=== PATIENT | female | born 1945 | race Caucasian/White ===

== ENCOUNTER → 2022-11-03 | Outpatient (REF) | payer OTHER | LOC: M SMT 17:08 | PROVIDERS: ATTEND Urology | DX: N39.0 Urinary tract infection, site not specified (principal) ==

== ENCOUNTER 2022-11-08 12:58 | Inpatient (IN) | payer MEDICARE, OTHER ==
[~2022-11-08] VITALS: Ht 165.1 cm; Wt 49.0 kg
[2022-11-08] MEDS ORDERED: BACTDSTA PO (14:16)
[2022-11-08] MEDS ORDERED: CHOL4PW PO (14:16)
[2022-11-08] MEDS ORDERED: NEUR100C PO (14:16)
[2022-11-08] MEDS ORDERED: LEXA1TAB2 PO (14:16)
[2022-11-08] MEDS ORDERED: ATIV1TAB10 PO (14:16)
[2022-11-08] MEDS ORDERED: ERGO80006 PO (14:16)
[2022-11-08] MEDS ORDERED: ESOM0.1C PO (14:16)
[2022-11-08] MEDS ORDERED: ONDANSETRON 4MG 2ML VIAL IV ONE (15:00)
[2022-11-08 15:14] LABS: BASO % 0.3 % (0.0-1.0); EOS # 0.1 10^3/uL (0.0-0.5); EOS % 0.7 % (0.0-3.0); HEMATOCRIT 28.3 % (36.0-47.0); HEMOGLOBIN 8.6 g/dl (12.0-15.5); LYMPH # 1.3 10^3/uL (1.5-5.0); LYMPH % 13.6 % (24.0-44.0); MEAN CORPUSCULAR HEMOGLOBIN 27.8 pg (27.0-33.0); MEAN CORPUSCULAR HGB CONC 30.4 g/dl (32.0-36.5); MEAN CORPUSCULAR VOLUME 91.6 fl (80.0-96.0); MONO # 0.7 10^3/uL (0.0-0.8); MONO % 7.7 % (2.0-8.0); NEUTROPHILS # 7.1 10^3/uL (1.5-8.5); NEUTROPHILS % 77.2 % (36.0-66.0); PLATELET COUNT, AUTOMATED 264 10^3/uL (150-450); RED BLOOD COUNT 3.09 10^6/uL (4.00-5.40); WHITE BLOOD COUNT 9.2 10^3/uL (4.0-10.0)
[2022-11-08 15:29] LABS: INR 1.25
[2022-11-08 15:30] LABS: PARTIAL THROMBOPLASTIN TIME 36.6 SECONDS (24.8-34.2)
[2022-11-08 15:47] LABS: RSV AMPLIFICATION NEGATIVE (NEGATIVE)
[2022-11-08 15:56] LABS: BLOOD UREA NITROGEN 11 MG/DL (9-23); CALCIUM LEVEL 4.6 MG/DL (8.3-10.6); CARBON DIOXIDE LEVEL 28 MMOL/L (20-31); CHLORIDE LEVEL 103 MMOL/L (98-107); CREATININE FOR GFR 1.04 MG/DL (0.55-1.30); FREE T4 0.99 NG/DL (0.89-1.76); GLOMERULAR FILTRATION RATE 54.4 (>39); GLUCOSE, FASTING 80 MG/DL (74-106); MAGNESIUM LEVEL < 0.5 MG/DL (1.8-2.4); POTASSIUM SERUM 3.6 MMOL/L (3.5-5.1); SODIUM LEVEL 140 MMOL/L (136-145)
[2022-11-08] MEDS ORDERED: CALCIUM GLUCONATE 1,000 MG in D5W MINI-BAG PLUS 100 ML IV ONE (16:00)
[2022-11-08] MEDS ORDERED: MAG SULF 1GM/100ML (MAG RUN) 1 GM in IV 1 EA IV ONE ×3 (16:00→19:40)
[2022-11-08 16:13] LABS: PTH INTACT 40.5 PG/ML (18.5-88.0)
[2022-11-08] MEDS ORDERED: VITA500045 PO (17:25)
[2022-11-08] MEDS ORDERED: HOME MED LIST COMPLETE! XX SCH (17:30)
[2022-11-08] MEDS ORDERED: GLUCOSE 4GM CHEW TABLET PO PRN (17:40)
[2022-11-08] MEDS ORDERED: GLUCAGON INJ 1MG VIAL SC PRN (17:40)
[2022-11-08] MEDS ORDERED: DEXTROSE 50% 50ML SYRINGE IV PRN (17:40)
[2022-11-08] MEDS ORDERED: ISOVUE-370 76% 100ML VIAL As Ordered ONE (17:45)
[2022-11-08 19:15] LABS: ALBUMIN 2.1 G/DL (3.2-5.2); CALCIUM LEVEL 4.4 MG/DL (8.3-10.6); MAGNESIUM LEVEL 0.7 MG/DL (1.8-2.4)
[2022-11-08] MEDS: CALCIUM CARBONATE 500 MG CHEW U/D PO SCH ×2 (19:34→23:36)
[2022-11-08] MEDS ORDERED: CALCIUM GLUCONATE IV ONE (20:00)
[2022-11-08] MEDS ORDERED: D5W IV ONE (20:00)
[2022-11-08 20:12] VITALS: BP 122/58
[2022-11-08] MEDS ORDERED: INSULIN LISPRO (NovoLOG) PER UNIT SC SCH (21:00)
[2022-11-08] MEDS: GABAPENTIN 100 MG CAP PO SCH (21:51)
[2022-11-08] MEDS: LORazepam 0.5 MG TAB PO PRN (21:51)
[2022-11-08] MEDS: CALCITRIOL 0.25 MCG CAP (S0169) PO SCH (21:51)
[2022-11-08] MEDS: DOCUSATE SODIUM 100MG CAPSULE PO SCH (21:51)
[2022-11-08] MEDS: ENOXAPARIN 60MG/0.6ML SYRINGE (J1650 PER 10MG) SC SCH (21:52)
[2022-11-08] MEDS: CEFDINIR 300 MG CAP (OMNICEF) PO SCH (21:53)
[2022-11-08] MEDS ORDERED: HEPARIN SOD (PORCINE) 5000UNITS/ML 1ML VIAL/SYRINGE SC SCH (22:00)
[2022-11-08 23:43] VITALS: BP 119/57
[2022-11-09 01:06] LABS: CALCIUM LEVEL 5.6 MG/DL (8.3-10.6)
[2022-11-09] MEDS: MAG SULF 1GM/100ML (MAG RUN) 1 GM in IV 1 EA IV SCH ×4 (02:21→10:59)
[2022-11-09 03:36] VITALS: BP 128/62
[2022-11-09] MEDS: CALCIUM CARBONATE 500 MG CHEW U/D PO SCH ×4 (05:11→23:49)
[2022-11-09 07:15] LABS: BASO % 0.1 % (0.0-1.0); EOS # 0.1 10^3/uL (0.0-0.5); EOS % 1.5 % (0.0-3.0); HEMATOCRIT 25.3 % (36.0-47.0); HEMOGLOBIN 7.9 g/dl (12.0-15.5); LYMPH # 1.1 10^3/uL (1.5-5.0); LYMPH % 13.5 % (24.0-44.0); MEAN CORPUSCULAR HEMOGLOBIN 28.1 pg (27.0-33.0); MEAN CORPUSCULAR HGB CONC 31.2 g/dl (32.0-36.5); MONO # 0.7 10^3/uL (0.0-0.8); MONO % 8.4 % (2.0-8.0); NEUTROPHILS # 6.1 10^3/uL (1.5-8.5); NEUTROPHILS % 75.9 % (36.0-66.0); PLATELET COUNT, AUTOMATED 270 10^3/uL (150-450); RED BLOOD COUNT 2.81 10^6/uL (4.00-5.40)
[2022-11-09] MEDS: INSULIN LISPRO (NovoLOG) PER UNIT SC SCH ×2 (07:30→12:00)
[2022-11-09 07:35] VITALS: BP 143/63
[2022-11-09 07:42] LABS: ALKALINE PHOSPHATASE 59 U/L (46-116); ALT/SGPT < 9 U/L (7.0-40); AST/SGOT 20 U/L (<34); BILIRUBIN,TOTAL 0.4 MG/DL (0.3-1.2); BLOOD UREA NITROGEN 10 MG/DL (9-23); CALCIUM LEVEL 7.1 MG/DL (8.3-10.6); CARBON DIOXIDE LEVEL 28 MMOL/L (20-31); CHLORIDE LEVEL 104 MMOL/L (98-107); CREATININE FOR GFR 1.04 MG/DL (0.55-1.30); GLOMERULAR FILTRATION RATE 54.4 (>39); GLUCOSE, FASTING 84 MG/DL (74-106); MAGNESIUM LEVEL 1.6 MG/DL (1.8-2.4); PHOSPHORUS LEVEL 4.4 MG/DL (2.4-5.1); POTASSIUM SERUM 3.8 MMOL/L (3.5-5.1); SODIUM LEVEL 140 MMOL/L (136-145); TOTAL PROTEIN 4.7 G/DL (5.7-8.2)
[2022-11-09] MEDS: CHOLESTYRAMINE 4GM PWD PKT PO SCH (09:16)
[2022-11-09] MEDS: GABAPENTIN 100 MG CAP PO SCH ×3 (09:16→20:58)
[2022-11-09] MEDS: CALCITRIOL 0.25 MCG CAP (S0169) PO SCH ×2 (09:16→20:58)
[2022-11-09] MEDS: ESCITALOPRAM OXALATE 10 MG TAB (LEXAPRO) PO SCH (09:16)
[2022-11-09] MEDS: DOCUSATE SODIUM 100MG CAPSULE PO SCH ×2 (09:16→20:58)
[2022-11-09] MEDS: ENOXAPARIN 60MG/0.6ML SYRINGE (J1650 PER 10MG) SC SCH ×2 (09:17→20:58)
[2022-11-09] MEDS: CEFDINIR 300 MG CAP (OMNICEF) PO SCH ×2 (09:28→20:58)
[2022-11-09 10:26] LABS: IRON (FE) 28 UG/DL (50-170); PERCENT SATURATION 15.5 % (13.2-45.0); TOTAL IRON BINDING CAPACITY 181 UG/DL (250-425)
[2022-11-09 10:33] LABS: VITAMIN B12 LEVEL 293 PG/ML (211-911)
[2022-11-09 10:35] LABS: FOLATE 1.37 NG/ML (>5.4)
[2022-11-09 13:06] VITALS: BP 130/59
[2022-11-09 13:52] LABS: CALCIUM LEVEL 7.8 MG/DL (8.3-10.6); CREATININE FOR GFR 1.02 MG/DL (0.55-1.30); GLOMERULAR FILTRATION RATE 55.7 (>39); POTASSIUM SERUM 3.9 MMOL/L (3.5-5.1)
[2022-11-09] MEDS: FOLIC ACID 1MG TAB PO SCH (15:03)
[2022-11-09 15:57] VITALS: BP 150/65
[2022-11-09] MEDS: ASPIRIN 81MG ENTERIC TABLET PO SCH (16:55)
[2022-11-09 19:43] VITALS: BP 163/72
[2022-11-09] MEDS: LORazepam 0.5 MG TAB PO PRN (20:58)
[2022-11-09 23:26] LABS: CALCIUM LEVEL 7.5 MG/DL (8.3-10.6)
[2022-11-09 23:43] VITALS: BP 150/66
[2022-11-10 02:52] LABS: CALCIUM, 24 HOUR URINE 128.3 MG/24HR (42-353); CALCIUM, URINE 15.1 MG/DL
[2022-11-10 02:54] LABS: CREATININE 24 HOUR, URINE 389.3 MG/24HR (600-1800); CREATININE, URINE 45.8 MG/DL
[2022-11-10 04:00] VITALS: BP 157/67
[2022-11-10] MEDS: CALCIUM CARBONATE 500 MG CHEW U/D PO SCH ×4 (05:08→23:37)
[2022-11-10 07:36] LABS: HEMATOCRIT 25.8 % (36.0-47.0); HEMOGLOBIN 8.1 g/dl (12.0-15.5); MEAN CORPUSCULAR HEMOGLOBIN 28.3 pg (27.0-33.0); MEAN CORPUSCULAR HGB CONC 31.4 g/dl (32.0-36.5); MEAN CORPUSCULAR VOLUME 90.2 fl (80.0-96.0); PLATELET COUNT, AUTOMATED 280 10^3/uL (150-450); RED BLOOD COUNT 2.86 10^6/uL (4.00-5.40); WHITE BLOOD COUNT 8.3 10^3/uL (4.0-10.0)
[2022-11-10 07:52] LABS: BLOOD UREA NITROGEN 17 MG/DL (9-23); CALCIUM LEVEL 7.7 MG/DL (8.3-10.6); CARBON DIOXIDE LEVEL 28 MMOL/L (20-31); CHLORIDE LEVEL 104 MMOL/L (98-107); CREATININE FOR GFR 0.89 MG/DL (0.55-1.30); GLOMERULAR FILTRATION RATE > 60.0 (>39); GLUCOSE, FASTING 85 MG/DL (74-106); MAGNESIUM LEVEL 1.7 MG/DL (1.8-2.4); POTASSIUM SERUM 4.7 MMOL/L (3.5-5.1); SODIUM LEVEL 138 MMOL/L (136-145)
[2022-11-10] MEDS: ENOXAPARIN 60MG/0.6ML SYRINGE (J1650 PER 10MG) SC SCH ×2 (08:22→20:39)
[2022-11-10] MEDS: CHOLESTYRAMINE 4GM PWD PKT PO SCH (08:22)
[2022-11-10] MEDS: ESCITALOPRAM OXALATE 10 MG TAB (LEXAPRO) PO SCH (08:22)
[2022-11-10] MEDS: GABAPENTIN 100 MG CAP PO SCH ×3 (08:22→20:38)
[2022-11-10] MEDS: ASPIRIN 81MG ENTERIC TABLET PO SCH (08:22)
[2022-11-10] MEDS: CEFDINIR 300 MG CAP (OMNICEF) PO SCH ×2 (08:22→20:44)
[2022-11-10] MEDS: CALCITRIOL 0.25 MCG CAP (S0169) PO SCH ×2 (08:22→20:38)
[2022-11-10] MEDS: FOLIC ACID 1MG TAB PO SCH (08:22)
[2022-11-10] MEDS: DOCUSATE SODIUM 100MG CAPSULE PO SCH ×2 (08:23→20:38)
[2022-11-10] MEDS: MAG SULF 1GM/100ML (MAG RUN) 1 GM in IV 1 EA IV SCH ×2 (08:29→09:57)
[2022-11-10 08:35] VITALS: BP 137/62
[2022-11-10] MEDS: MAGNESIUM OXIDE 400MG TAB (MAG-OX) PO SCH ×3 (09:57→20:38)
[2022-11-10] MEDS: VITAMIN D 1,000 INTERNATIONAL UNITS TABLET PO SCH (12:19)
[2022-11-10 20:04] VITALS: BP 173/68
[2022-11-10] MEDS: LORazepam 0.5 MG TAB PO PRN (20:46)
[2022-11-10 23:44] VITALS: BP 190/70
[2022-11-10 23:57] VITALS: BP 160/68
[2022-11-11] MEDS: CALCIUM CARBONATE 500 MG CHEW U/D PO SCH ×3 (05:17→21:39)
[2022-11-11 07:57] VITALS: BP 154/71
[2022-11-11 08:07] LABS: ALBUMIN 2.1 G/DL (3.2-5.2); BLOOD UREA NITROGEN 22 MG/DL (9-23); CALCIUM LEVEL 8.9 MG/DL (8.3-10.6); CARBON DIOXIDE LEVEL 29 MMOL/L (20-31); CHLORIDE LEVEL 103 MMOL/L (98-107); CREATININE FOR GFR 0.91 MG/DL (0.55-1.30); GLOMERULAR FILTRATION RATE > 60.0 (>39); GLUCOSE, FASTING 81 MG/DL (74-106); POTASSIUM SERUM 4.9 MMOL/L (3.5-5.1); SODIUM LEVEL 135 MMOL/L (136-145)
[2022-11-11] MEDS: ESCITALOPRAM OXALATE 10 MG TAB (LEXAPRO) PO SCH (08:37)
[2022-11-11] MEDS: CALCITRIOL 0.25 MCG CAP (S0169) PO SCH ×2 (08:37→20:08)
[2022-11-11] MEDS: MAGNESIUM OXIDE 400MG TAB (MAG-OX) PO SCH ×3 (08:37→20:09)
[2022-11-11] MEDS: ASPIRIN 81MG ENTERIC TABLET PO SCH (08:37)
[2022-11-11] MEDS: VITAMIN D 1,000 INTERNATIONAL UNITS TABLET PO SCH (08:37)
[2022-11-11] MEDS: GABAPENTIN 100 MG CAP PO SCH ×3 (08:37→20:09)
[2022-11-11] MEDS: ENOXAPARIN 60MG/0.6ML SYRINGE (J1650 PER 10MG) SC SCH ×2 (08:37→20:08)
[2022-11-11] MEDS: FOLIC ACID 1MG TAB PO SCH (08:38)
[2022-11-11] MEDS: DOCUSATE SODIUM 100MG CAPSULE PO SCH ×2 (08:38→20:09)
[2022-11-11] MEDS: LORazepam 0.5 MG TAB PO PRN ×2 (08:43→21:40)
[2022-11-11] MEDS: CHOLESTYRAMINE 4GM PWD PKT PO SCH (10:34)
[2022-11-11] MEDS: CEFDINIR 300 MG CAP (OMNICEF) PO SCH ×2 (13:53→20:08)
[2022-11-11 20:00] VITALS: BP 134/63
[2022-11-11] MEDS ORDERED: SODIUM CHLORIDE NASAL 0.65% SPRAY BTL (OCEAN) SCH (21:00)
[2022-11-11] MEDS ORDERED: ALBUTEROL 90 MCG/ACT 8GM HFA INHALER INH PRN (21:45)
[2022-11-12 03:54] LABS: ALBUMIN 2.1 G/DL (3.2-5.2); CALCIUM LEVEL 8.7 MG/DL (8.3-10.6)
[2022-11-12] MEDS: CALCIUM CARBONATE 500 MG CHEW U/D PO SCH ×3 (06:00→21:09)
[2022-11-12 08:22] VITALS: BP 148/69
[2022-11-12] MEDS: CHOLESTYRAMINE 4GM PWD PKT PO SCH (09:00)
[2022-11-12] MEDS: ENOXAPARIN 60MG/0.6ML SYRINGE (J1650 PER 10MG) SC SCH ×2 (09:24→21:09)
[2022-11-12] MEDS: CALCITRIOL 0.25 MCG CAP (S0169) PO SCH ×2 (09:25→21:08)
[2022-11-12] MEDS: GABAPENTIN 100 MG CAP PO SCH ×3 (09:25→21:09)
[2022-11-12] MEDS: ESCITALOPRAM OXALATE 10 MG TAB (LEXAPRO) PO SCH (09:25)
[2022-11-12] MEDS: FOLIC ACID 1MG TAB PO SCH (09:25)
[2022-11-12] MEDS: VITAMIN D 1,000 INTERNATIONAL UNITS TABLET PO SCH (09:25)
[2022-11-12] MEDS: CEFDINIR 300 MG CAP (OMNICEF) PO SCH ×2 (09:25→21:10)
[2022-11-12] MEDS: DOCUSATE SODIUM 100MG CAPSULE PO SCH ×2 (09:25→21:10)
[2022-11-12] MEDS: ASPIRIN 81MG ENTERIC TABLET PO SCH (09:25)
[2022-11-12] MEDS: MAGNESIUM OXIDE 400MG TAB (MAG-OX) PO SCH ×3 (09:25→21:10)
[2022-11-12] MEDS: LORazepam 0.5 MG TAB PO PRN ×2 (09:32→22:29)
[2022-11-12 10:32] LABS: BLOOD UREA NITROGEN 23 MG/DL (9-23); CALCIUM LEVEL 8.1 MG/DL (8.3-10.6); CARBON DIOXIDE LEVEL 30 MMOL/L (20-31); CHLORIDE LEVEL 99 MMOL/L (98-107); CREATININE FOR GFR 0.95 MG/DL (0.55-1.30); GLOMERULAR FILTRATION RATE > 60.0 (>39); GLUCOSE, FASTING 85 MG/DL (74-106); MAGNESIUM LEVEL 1.8 MG/DL (1.8-2.4); POTASSIUM SERUM 5.1 MMOL/L (3.5-5.1); SODIUM LEVEL 133 MMOL/L (136-145)
[2022-11-12 20:00] VITALS: BP 137/63
[2022-11-13] MEDS: CALCIUM CARBONATE 500 MG CHEW U/D PO SCH ×3 (05:23→22:00)
[2022-11-13] MEDS: CHOLESTYRAMINE 4GM PWD PKT PO SCH (09:21)
[2022-11-13] MEDS: ASPIRIN 81MG ENTERIC TABLET PO SCH (09:22)
[2022-11-13] MEDS: CEFDINIR 300 MG CAP (OMNICEF) PO SCH (09:22)
[2022-11-13] MEDS: ENOXAPARIN 60MG/0.6ML SYRINGE (J1650 PER 10MG) SC SCH ×2 (09:22→22:00)
[2022-11-13] MEDS: FOLIC ACID 1MG TAB PO SCH (09:22)
[2022-11-13] MEDS: CALCITRIOL 0.25 MCG CAP (S0169) PO SCH ×2 (09:22→21:59)
[2022-11-13] MEDS: ESCITALOPRAM OXALATE 10 MG TAB (LEXAPRO) PO SCH (09:22)
[2022-11-13] MEDS: VITAMIN D 1,000 INTERNATIONAL UNITS TABLET PO SCH (09:22)
[2022-11-13] MEDS: MAGNESIUM OXIDE 400MG TAB (MAG-OX) PO SCH ×3 (09:23→21:59)
[2022-11-13] MEDS: DOCUSATE SODIUM 100MG CAPSULE PO SCH ×2 (09:23→21:59)
[2022-11-13] MEDS: GABAPENTIN 100 MG CAP PO SCH ×3 (09:23→21:59)
[2022-11-13] MEDS: LORazepam 0.5 MG TAB PO PRN ×2 (09:31→22:01)
[2022-11-13 14:00] VITALS: BP 125/63
[2022-11-14 05:36] VITALS: BP 126/61
[2022-11-14] MEDS: CALCIUM CARBONATE 500 MG CHEW U/D PO SCH ×3 (05:59→21:07)
[2022-11-14] MEDS: CHOLESTYRAMINE 4GM PWD PKT PO SCH (09:09)
[2022-11-14] MEDS: CALCITRIOL 0.25 MCG CAP (S0169) PO SCH ×2 (09:10→21:07)
[2022-11-14] MEDS: ASPIRIN 81MG ENTERIC TABLET PO SCH (09:10)
[2022-11-14] MEDS: ENOXAPARIN 60MG/0.6ML SYRINGE (J1650 PER 10MG) SC SCH ×2 (09:10→21:08)
[2022-11-14] MEDS: DOCUSATE SODIUM 100MG CAPSULE PO SCH ×2 (09:10→21:08)
[2022-11-14] MEDS: GABAPENTIN 100 MG CAP PO SCH ×3 (09:10→21:07)
[2022-11-14] MEDS: ESCITALOPRAM OXALATE 10 MG TAB (LEXAPRO) PO SCH (09:10)
[2022-11-14] MEDS: FOLIC ACID 1MG TAB PO SCH (09:10)
[2022-11-14] MEDS: VITAMIN D 1,000 INTERNATIONAL UNITS TABLET PO SCH (09:11)
[2022-11-14] MEDS: MAGNESIUM OXIDE 400MG TAB (MAG-OX) PO SCH ×3 (09:11→21:08)
[2022-11-14] MEDS: LORazepam 0.5 MG TAB PO PRN (21:07)
[2022-11-15 06:05] VITALS: BP 124/62
[2022-11-15] MEDS: CALCIUM CARBONATE 500 MG CHEW U/D PO SCH ×3 (06:06→21:19)
[2022-11-15] MEDS: CHOLESTYRAMINE 4GM PWD PKT PO SCH (08:42)
[2022-11-15] MEDS: ENOXAPARIN 60MG/0.6ML SYRINGE (J1650 PER 10MG) SC SCH ×2 (08:43→21:19)
[2022-11-15] MEDS: DOCUSATE SODIUM 100MG CAPSULE PO SCH ×2 (08:43→21:18)
[2022-11-15] MEDS: ASPIRIN 81MG ENTERIC TABLET PO SCH (08:43)
[2022-11-15] MEDS: ESCITALOPRAM OXALATE 10 MG TAB (LEXAPRO) PO SCH (08:43)
[2022-11-15] MEDS: MAGNESIUM OXIDE 400MG TAB (MAG-OX) PO SCH ×3 (08:43→21:18)
[2022-11-15] MEDS: CALCITRIOL 0.25 MCG CAP (S0169) PO SCH ×2 (08:43→21:17)
[2022-11-15] MEDS: GABAPENTIN 100 MG CAP PO SCH ×3 (08:44→21:18)
[2022-11-15] MEDS: VITAMIN D 1,000 INTERNATIONAL UNITS TABLET PO SCH (08:44)
[2022-11-15] MEDS: FOLIC ACID 1MG TAB PO SCH (08:44)
[2022-11-15] MEDS: LORazepam 0.5 MG TAB PO PRN (21:18)
[2022-11-16 06:00] VITALS: BP 131/60
[2022-11-16] MEDS: CALCIUM CARBONATE 500 MG CHEW U/D PO SCH ×3 (06:04→20:34)
[2022-11-16] MEDS: DOCUSATE SODIUM 100MG CAPSULE PO SCH ×2 (09:00→20:34)
[2022-11-16] MEDS: CHOLESTYRAMINE 4GM PWD PKT PO SCH (09:56)
[2022-11-16] MEDS: GABAPENTIN 100 MG CAP PO SCH ×3 (09:57→20:34)
[2022-11-16] MEDS: ENOXAPARIN 60MG/0.6ML SYRINGE (J1650 PER 10MG) SC SCH ×3 (09:57→20:48)
[2022-11-16] MEDS: ESCITALOPRAM OXALATE 10 MG TAB (LEXAPRO) PO SCH (09:57)
[2022-11-16] MEDS: CALCITRIOL 0.25 MCG CAP (S0169) PO SCH ×2 (09:57→20:34)
[2022-11-16] MEDS: ASPIRIN 81MG ENTERIC TABLET PO SCH (09:57)
[2022-11-16] MEDS: VITAMIN D 1,000 INTERNATIONAL UNITS TABLET PO SCH (09:57)
[2022-11-16] MEDS: MAGNESIUM OXIDE 400MG TAB (MAG-OX) PO SCH ×3 (09:57→20:35)
[2022-11-16] MEDS: FOLIC ACID 1MG TAB PO SCH (09:57)
[2022-11-16] MEDS ORDERED: guaiFENesin 200 MG TAB PO PRN (20:40)
[2022-11-16] MEDS: LORazepam 0.5 MG TAB PO PRN (20:45)
[2022-11-17] MEDS: CALCIUM CARBONATE 500 MG CHEW U/D PO SCH ×3 (05:48→21:17)
[2022-11-17 06:00] VITALS: BP 125/61
[2022-11-17] MEDS: CHOLESTYRAMINE 4GM PWD PKT PO SCH ×3 (08:24→08:35)
[2022-11-17] MEDS: FOLIC ACID 1MG TAB PO SCH (08:25)
[2022-11-17] MEDS: ASPIRIN 81MG ENTERIC TABLET PO SCH (08:25)
[2022-11-17] MEDS: ENOXAPARIN 60MG/0.6ML SYRINGE (J1650 PER 10MG) SC SCH ×2 (08:25→21:18)
[2022-11-17] MEDS: VITAMIN D 1,000 INTERNATIONAL UNITS TABLET PO SCH (08:25)
[2022-11-17] MEDS: GABAPENTIN 100 MG CAP PO SCH ×3 (08:25→21:17)
[2022-11-17] MEDS: ESCITALOPRAM OXALATE 10 MG TAB (LEXAPRO) PO SCH (08:25)
[2022-11-17] MEDS: DOCUSATE SODIUM 100MG CAPSULE PO SCH ×2 (08:25→21:00)
[2022-11-17] MEDS: MAGNESIUM OXIDE 400MG TAB (MAG-OX) PO SCH ×3 (08:25→21:18)
[2022-11-17] MEDS: CALCITRIOL 0.25 MCG CAP (S0169) PO SCH ×2 (08:25→21:17)
[2022-11-17] MEDS: LORazepam 0.5 MG TAB PO PRN (16:35)
[2022-11-17] MEDS: NICOTINE 21MG/24HR 1 EA TRANSDERMAL TD SCH (16:50)
[2022-11-18] MEDS: CALCIUM CARBONATE 500 MG CHEW U/D PO SCH ×3 (05:34→21:08)
[2022-11-18 06:00] VITALS: BP 126/60
[2022-11-18] MEDS: DOCUSATE SODIUM 100MG CAPSULE PO SCH ×2 (09:00→21:00)
[2022-11-18] MEDS: ENOXAPARIN 60MG/0.6ML SYRINGE (J1650 PER 10MG) SC SCH ×2 (09:01→21:04)
[2022-11-18] MEDS: NICOTINE 21MG/24HR 1 EA TRANSDERMAL TD SCH (09:01)
[2022-11-18] MEDS: CHOLESTYRAMINE 4GM PWD PKT PO SCH (09:01)
[2022-11-18] MEDS: MAGNESIUM OXIDE 400MG TAB (MAG-OX) PO SCH ×3 (09:02→21:09)
[2022-11-18] MEDS: FOLIC ACID 1MG TAB PO SCH (09:02)
[2022-11-18] MEDS: CALCITRIOL 0.25 MCG CAP (S0169) PO SCH ×2 (09:02→21:09)
[2022-11-18] MEDS: ASPIRIN 81MG ENTERIC TABLET PO SCH (09:02)
[2022-11-18] MEDS: VITAMIN D 1,000 INTERNATIONAL UNITS TABLET PO SCH (09:02)
[2022-11-18] MEDS: GABAPENTIN 100 MG CAP PO SCH ×2 (09:02→21:09)
[2022-11-18] MEDS: ESCITALOPRAM OXALATE 10 MG TAB (LEXAPRO) PO SCH (09:02)
[2022-11-18] MEDS ORDERED: LOPERAMIDE 2 MG CAPLET PO ONE (15:30)
[2022-11-18] MEDS: LORazepam 0.5 MG TAB PO PRN (21:08)
[2022-11-19 06:00] VITALS: BP 121/54
[2022-11-19] MEDS: CALCIUM CARBONATE 500 MG CHEW U/D PO SCH ×3 (06:01→21:06)
[2022-11-19] MEDS: CHOLESTYRAMINE 4GM PWD PKT PO SCH (08:21)
[2022-11-19] MEDS: GABAPENTIN 100 MG CAP PO SCH ×2 (08:22→21:06)
[2022-11-19] MEDS: ENOXAPARIN 60MG/0.6ML SYRINGE (J1650 PER 10MG) SC SCH ×2 (08:22→21:08)
[2022-11-19] MEDS: DOCUSATE SODIUM 100MG CAPSULE PO SCH ×3 (08:22→21:00)
[2022-11-19] MEDS: NICOTINE 21MG/24HR 1 EA TRANSDERMAL TD SCH (08:22)
[2022-11-19] MEDS: VITAMIN D 1,000 INTERNATIONAL UNITS TABLET PO SCH (08:23)
[2022-11-19] MEDS: CALCITRIOL 0.25 MCG CAP (S0169) PO SCH ×2 (08:23→21:06)
[2022-11-19] MEDS: ESCITALOPRAM OXALATE 10 MG TAB (LEXAPRO) PO SCH (08:23)
[2022-11-19] MEDS: FOLIC ACID 1MG TAB PO SCH (08:23)
[2022-11-19] MEDS: MAGNESIUM OXIDE 400MG TAB (MAG-OX) PO SCH ×3 (08:23→21:07)
[2022-11-19] MEDS: ASPIRIN 81MG ENTERIC TABLET PO SCH (08:23)
[2022-11-19] MEDS: LORazepam 0.5 MG TAB PO PRN ×2 (08:31→21:15)
[2022-11-19] MEDS: FEXOFENADINE 60MG TAB PO SCH (09:37)
[2022-11-20] MEDS: CALCIUM CARBONATE 500 MG CHEW U/D PO SCH ×3 (05:47→21:00)
[2022-11-20 05:50] VITALS: BP 132/61
[2022-11-20] MEDS: DOCUSATE SODIUM 100MG CAPSULE PO SCH ×2 (08:49→20:49)
[2022-11-20] MEDS: NICOTINE 21MG/24HR 1 EA TRANSDERMAL TD SCH (08:55)
[2022-11-20] MEDS: ENOXAPARIN 60MG/0.6ML SYRINGE (J1650 PER 10MG) SC SCH ×2 (08:56→20:52)
[2022-11-20] MEDS: CHOLESTYRAMINE 4GM PWD PKT PO SCH (08:56)
[2022-11-20] MEDS: FOLIC ACID 1MG TAB PO SCH (08:57)
[2022-11-20] MEDS: FEXOFENADINE 60MG TAB PO SCH (08:57)
[2022-11-20] MEDS: MAGNESIUM OXIDE 400MG TAB (MAG-OX) PO SCH ×3 (08:57→20:51)
[2022-11-20] MEDS: GABAPENTIN 100 MG CAP PO SCH ×2 (08:57→20:51)
[2022-11-20] MEDS: ASPIRIN 81MG ENTERIC TABLET PO SCH (08:57)
[2022-11-20] MEDS: ESCITALOPRAM OXALATE 10 MG TAB (LEXAPRO) PO SCH (08:57)
[2022-11-20] MEDS: CALCITRIOL 0.25 MCG CAP (S0169) PO SCH ×2 (08:57→20:51)
[2022-11-20] MEDS: VITAMIN D 1,000 INTERNATIONAL UNITS TABLET PO SCH (08:58)
[2022-11-20] MEDS: LORazepam 0.5 MG TAB PO PRN (20:51)
[2022-11-21 05:59] VITALS: BP 131/61
[2022-11-21] MEDS: CALCIUM CARBONATE 500 MG CHEW U/D PO SCH ×3 (06:22→21:58)
[2022-11-21] MEDS: CALCITRIOL 0.25 MCG CAP (S0169) PO SCH ×2 (08:27→21:58)
[2022-11-21] MEDS: GABAPENTIN 100 MG CAP PO SCH ×2 (08:27→21:58)
[2022-11-21] MEDS: ESCITALOPRAM OXALATE 10 MG TAB (LEXAPRO) PO SCH (08:27)
[2022-11-21] MEDS: MAGNESIUM OXIDE 400MG TAB (MAG-OX) PO SCH ×3 (08:27→21:58)
[2022-11-21] MEDS: FEXOFENADINE 60MG TAB PO SCH (08:27)
[2022-11-21] MEDS: CHOLESTYRAMINE 4GM PWD PKT PO SCH (08:27)
[2022-11-21] MEDS: FOLIC ACID 1MG TAB PO SCH (08:27)
[2022-11-21] MEDS: ASPIRIN 81MG ENTERIC TABLET PO SCH (08:27)
[2022-11-21] MEDS: VITAMIN D 1,000 INTERNATIONAL UNITS TABLET PO SCH (08:27)
[2022-11-21] MEDS: ENOXAPARIN 60MG/0.6ML SYRINGE (J1650 PER 10MG) SC SCH ×2 (08:28→21:59)
[2022-11-21] MEDS: NICOTINE 21MG/24HR 1 EA TRANSDERMAL TD SCH (08:28)
[2022-11-21] MEDS: DOCUSATE SODIUM 100MG CAPSULE PO SCH ×2 (08:32→21:00)
[2022-11-22 05:16] VITALS: BP 111/60
[2022-11-22] MEDS: CALCIUM CARBONATE 500 MG CHEW U/D PO SCH ×3 (06:19→20:47)
[2022-11-22 07:56] LABS: ALBUMIN 2.2 G/DL (3.2-5.2); BILIRUBIN,TOTAL 0.2 MG/DL (0.3-1.2); CALCIUM LEVEL 9.4 MG/DL (8.3-10.6); CREATININE FOR GFR 1.21 MG/DL (0.55-1.30); GLOMERULAR FILTRATION RATE 45.7 (>39); POTASSIUM SERUM 4.6 MMOL/L (3.5-5.1); TOTAL PROTEIN 5.2 G/DL (5.7-8.2)
[2022-11-22] MEDS: MAGNESIUM OXIDE 400MG TAB (MAG-OX) PO SCH ×4 (09:00→16:00)
[2022-11-22] MEDS: DOCUSATE SODIUM 100MG CAPSULE PO SCH ×2 (09:00→10:00)
[2022-11-22] MEDS: ENOXAPARIN 60MG/0.6ML SYRINGE (J1650 PER 10MG) SC SCH ×2 (09:59→20:47)
[2022-11-22] MEDS: ESCITALOPRAM OXALATE 10 MG TAB (LEXAPRO) PO SCH (09:59)
[2022-11-22] MEDS: CALCITRIOL 0.25 MCG CAP (S0169) PO SCH ×2 (10:00→20:47)
[2022-11-22] MEDS: ASPIRIN 81MG ENTERIC TABLET PO SCH (10:01)
[2022-11-22] MEDS: CHOLESTYRAMINE 4GM PWD PKT PO SCH (10:01)
[2022-11-22] MEDS: POLYVINYL ALCOHOL OPHTH SOLN 15ML (LIQUITEARS) OU PRN (10:01)
[2022-11-22] MEDS: FOLIC ACID 1MG TAB PO SCH (10:25)
[2022-11-22] MEDS: GABAPENTIN 100 MG CAP PO SCH ×2 (10:25→20:47)
[2022-11-22] MEDS: NICOTINE 21MG/24HR 1 EA TRANSDERMAL TD SCH (10:26)
[2022-11-22] MEDS: VITAMIN D 1,000 INTERNATIONAL UNITS TABLET PO SCH (10:26)
[2022-11-22] MEDS: FEXOFENADINE 60MG TAB PO SCH (10:27)
[2022-11-22] MEDS ORDERED: LOPERAMIDE 2 MG CAPLET PO ONE (15:35)
[2022-11-22] MEDS: LORazepam 0.5 MG TAB PO PRN (20:48)
[2022-11-23] MEDS: CALCIUM CARBONATE 500 MG CHEW U/D PO SCH ×3 (06:00→20:46)
[2022-11-23 06:39] VITALS: BP 117/58
[2022-11-23] MEDS: VITAMIN D 1,000 INTERNATIONAL UNITS TABLET PO SCH (08:33)
[2022-11-23] MEDS: FOLIC ACID 1MG TAB PO SCH (08:34)
[2022-11-23] MEDS: ESCITALOPRAM OXALATE 10 MG TAB (LEXAPRO) PO SCH (08:34)
[2022-11-23] MEDS: FEXOFENADINE 60MG TAB PO SCH (08:34)
[2022-11-23] MEDS: CALCITRIOL 0.25 MCG CAP (S0169) PO SCH (08:34)
[2022-11-23] MEDS: GABAPENTIN 100 MG CAP PO SCH ×2 (08:34→20:46)
[2022-11-23] MEDS: MAGNESIUM OXIDE 400MG TAB (MAG-OX) PO SCH ×5 (08:34→20:49)
[2022-11-23] MEDS: ASPIRIN 81MG ENTERIC TABLET PO SCH (08:34)
[2022-11-23] MEDS: NICOTINE 21MG/24HR 1 EA TRANSDERMAL TD SCH (08:35)
[2022-11-23] MEDS: ENOXAPARIN 60MG/0.6ML SYRINGE (J1650 PER 10MG) SC SCH ×2 (08:35→20:46)
[2022-11-23] MEDS: CHOLESTYRAMINE 4GM PWD PKT PO SCH (10:37)
[2022-11-23] MEDS ORDERED: ONDANSETRON 4MG TAB PO ONE (17:50)
[2022-11-23] MEDS: POLYVINYL ALCOHOL OPHTH SOLN 15ML (LIQUITEARS) OU PRN ×2 (18:00→20:47)
[2022-11-23] MEDS: LORazepam 0.5 MG TAB PO PRN (20:46)
[2022-11-24 06:00] VITALS: BP 115/57
[2022-11-24] MEDS: ENOXAPARIN 60MG/0.6ML SYRINGE (J1650 PER 10MG) SC SCH ×2 (08:42→20:05)
[2022-11-24] MEDS: NICOTINE 21MG/24HR 1 EA TRANSDERMAL TD SCH (08:42)
[2022-11-24] MEDS: FEXOFENADINE 60MG TAB PO SCH (08:43)
[2022-11-24] MEDS: GABAPENTIN 100 MG CAP PO SCH ×2 (08:43→20:04)
[2022-11-24] MEDS: ESCITALOPRAM OXALATE 10 MG TAB (LEXAPRO) PO SCH (08:43)
[2022-11-24] MEDS: CALCITRIOL 0.25 MCG CAP (S0169) PO SCH (08:43)
[2022-11-24] MEDS: CALCIUM CARBONATE 500 MG CHEW U/D PO SCH ×2 (08:43→20:04)
[2022-11-24] MEDS: FOLIC ACID 1MG TAB PO SCH (08:43)
[2022-11-24] MEDS: CHOLESTYRAMINE 4GM PWD PKT PO SCH (08:44)
[2022-11-24] MEDS: MAGNESIUM OXIDE 400MG TAB (MAG-OX) PO SCH ×3 (08:44→20:04)
[2022-11-24] MEDS: ASPIRIN 81MG ENTERIC TABLET PO SCH (08:44)
[2022-11-24] MEDS: VITAMIN D 1,000 INTERNATIONAL UNITS TABLET PO SCH (08:44)
[2022-11-24] MEDS: POLYVINYL ALCOHOL OPHTH SOLN 15ML (LIQUITEARS) OU PRN (16:37)
[2022-11-25 06:00] VITALS: BP 116/58
[2022-11-25] MEDS: MAGNESIUM OXIDE 400MG TAB (MAG-OX) PO SCH ×4 (09:00→20:38)
[2022-11-25] MEDS: ENOXAPARIN 60MG/0.6ML SYRINGE (J1650 PER 10MG) SC SCH (09:14)
[2022-11-25] MEDS: CHOLESTYRAMINE 4GM PWD PKT PO SCH (09:15)
[2022-11-25] MEDS: NICOTINE 21MG/24HR 1 EA TRANSDERMAL TD SCH (09:15)
[2022-11-25] MEDS: ESCITALOPRAM OXALATE 10 MG TAB (LEXAPRO) PO SCH (09:16)
[2022-11-25] MEDS: FEXOFENADINE 60MG TAB PO SCH (09:16)
[2022-11-25] MEDS: ASPIRIN 81MG ENTERIC TABLET PO SCH (09:16)
[2022-11-25] MEDS: FOLIC ACID 1MG TAB PO SCH (09:16)
[2022-11-25] MEDS: VITAMIN D 1,000 INTERNATIONAL UNITS TABLET PO SCH (09:16)
[2022-11-25] MEDS: CALCITRIOL 0.25 MCG CAP (S0169) PO SCH (09:16)
[2022-11-25] MEDS: GABAPENTIN 100 MG CAP PO SCH ×2 (09:16→20:39)
[2022-11-25] MEDS: CALCIUM CARBONATE 500 MG CHEW U/D PO SCH ×2 (09:17→20:39)
[2022-11-25] MEDS: APIXABAN 5 MG TAB (ELIQUIS) PO SCH (20:38)
[2022-11-25] MEDS: LORazepam 0.5 MG TAB PO PRN (20:39)
[2022-11-26 05:32] VITALS: BP 133/63
[2022-11-26] MEDS: MAGNESIUM OXIDE 400MG TAB (MAG-OX) PO SCH ×3 (08:48→20:30)
[2022-11-26] MEDS: NICOTINE 21MG/24HR 1 EA TRANSDERMAL TD SCH (08:48)
[2022-11-26] MEDS: CALCITRIOL 0.25 MCG CAP (S0169) PO SCH (08:48)
[2022-11-26] MEDS: CHOLESTYRAMINE 4GM PWD PKT PO SCH (08:48)
[2022-11-26] MEDS: GABAPENTIN 100 MG CAP PO SCH ×2 (08:48→20:30)
[2022-11-26] MEDS: FOLIC ACID 1MG TAB PO SCH (08:48)
[2022-11-26] MEDS: APIXABAN 5 MG TAB (ELIQUIS) PO SCH ×2 (08:48→20:30)
[2022-11-26] MEDS: FEXOFENADINE 60MG TAB PO SCH (08:48)
[2022-11-26] MEDS: ASPIRIN 81MG ENTERIC TABLET PO SCH (08:48)
[2022-11-26] MEDS: CALCIUM CARBONATE 500 MG CHEW U/D PO SCH ×2 (08:49→20:30)
[2022-11-26] MEDS: VITAMIN D 1,000 INTERNATIONAL UNITS TABLET PO SCH (08:49)
[2022-11-26] MEDS: ESCITALOPRAM OXALATE 10 MG TAB (LEXAPRO) PO SCH (08:49)
[2022-11-26] MEDS: LORazepam 0.5 MG TAB PO PRN ×2 (09:05→20:30)
[2022-11-27 06:00] VITALS: BP_SYST 125; BP_SYST 127; BP_DIAS 61; BP_DIAS 68
[2022-11-27 07:03] LABS: ALBUMIN 2.4 G/DL (3.2-5.2); ALKALINE PHOSPHATASE 64 U/L (46-116); ALT/SGPT 13 U/L (7.0-40); AST/SGOT 12 U/L (<34); BILIRUBIN,DIRECT < 0.1 MG/DL (<0.4); BILIRUBIN,TOTAL 0.3 MG/DL (0.3-1.2); BLOOD UREA NITROGEN 25 MG/DL (9-23); CALCIUM LEVEL 7.9 MG/DL (8.3-10.6); CARBON DIOXIDE LEVEL 31 MMOL/L (20-31); CHLORIDE LEVEL 100 MMOL/L (98-107); CREATININE FOR GFR 1.08 MG/DL (0.55-1.30); GLOMERULAR FILTRATION RATE 52.1 (>39); GLUCOSE, FASTING 83 MG/DL (74-106); POTASSIUM SERUM 4.6 MMOL/L (3.5-5.1); SODIUM LEVEL 137 MMOL/L (136-145); TOTAL PROTEIN 5.7 G/DL (5.7-8.2)
[2022-11-27] MEDS: NICOTINE 21MG/24HR 1 EA TRANSDERMAL TD SCH (09:18)
[2022-11-27] MEDS: ASPIRIN 81MG ENTERIC TABLET PO SCH (09:18)
[2022-11-27] MEDS: CHOLESTYRAMINE 4GM PWD PKT PO SCH (09:18)
[2022-11-27] MEDS: CALCIUM CARBONATE 500 MG CHEW U/D PO SCH (09:19)
[2022-11-27] MEDS: GABAPENTIN 100 MG CAP PO SCH (09:19)
[2022-11-27] MEDS: VITAMIN D 1,000 INTERNATIONAL UNITS TABLET PO SCH (09:19)
[2022-11-27] MEDS: FOLIC ACID 1MG TAB PO SCH (09:20)
[2022-11-27] MEDS: FEXOFENADINE 60MG TAB PO SCH (09:20)
[2022-11-27] MEDS: MAGNESIUM OXIDE 400MG TAB (MAG-OX) PO SCH ×2 (09:20→16:25)
[2022-11-27] MEDS: ESCITALOPRAM OXALATE 10 MG TAB (LEXAPRO) PO SCH (09:20)
[2022-11-27] MEDS: APIXABAN 5 MG TAB (ELIQUIS) PO SCH (09:20)
[2022-11-27] MEDS: CALCITRIOL 0.25 MCG CAP (S0169) PO SCH (09:20)
[2022-11-27] MEDS: LORazepam 0.5 MG TAB PO PRN (09:30)
[2022-11-27] MEDS ORDERED: CALC1CAP31 PO (16:39)
[2022-11-27] MEDS ORDERED: FEXO60TA99 PO (16:39)
[2022-11-27] MEDS ORDERED: GABA-283 PO (16:39)
[2022-11-27] MEDS ORDERED: VITAD1000T PO (16:39)
[2022-11-27] MEDS ORDERED: CALC200T15 PO (16:39)
[2022-11-27] MEDS ORDERED: ELIQ5TAB PO (16:39)
[2022-11-27] MEDS ORDERED: FOLI1TAB11 PO (16:39)
[2022-11-27] MEDS ORDERED: ASPI81TAEC PO (16:39)
[2022-11-27] MEDS ORDERED: MAGN400T2 PO (16:39)
== END 2022-11-27 17:18 | disposition home health service (06) | DRG 640 ==
LOC: M ED 12:58 → M ED INP 17:07 → M PCU 20:04 → M MSPAV 11-13 06:18
PROVIDERS: ADMIT Internal Medicine; ATTEND Student in an Organized Health Care Education/Training Program
DX: E83.51 Hypocalcemia (principal); I26.99 Other pulmonary embolism without acute cor pulmonale; N13.4 Hydroureter; N13.30 Unspecified hydronephrosis; N39.0 Urinary tract infection, site not specified; E83.42 Hypomagnesemia; R55 Syncope and collapse; R63.4 Abnormal weight loss; R53.81 Other malaise; M25.551 Pain in right hip; Z66 Do not resuscitate; F32.A Depression, unspecified; R51.9 Headache, unspecified; D64.9 Anemia, unspecified; K90.0 Celiac disease; J44.9 Chronic obstructive pulmonary disease, unspecified; G62.9 Polyneuropathy, unspecified; I71.22 Aneurysm of the aortic arch, without rupture; N32.89 Other specified disorders of bladder; Z88.0 Allergy status to penicillin; Z79.899 Other long term (current) drug therapy; Z92.3 Personal history of irradiation; Z85.3 Personal history of malignant neoplasm of breast

== ENCOUNTER → 2022-12-07 | Outpatient (REF) | payer OTHER, MEDICARE ==
[~2022-12-07] MED LIST: ASPI81TAEC PO; ATIV1TAB10 PO; BACTDSTA PO; CALC1CAP31 PO; CALC200T15 PO; CHOL4PW PO; ELIQ5TAB PO; ERGO80006 PO; ESOM0.1C PO; FEXO60TA99 PO; FOLI1TAB11 PO; GABA-283 PO; LEXA1TAB2 PO; MAGN400T2 PO; NEUR100C PO; OXYB5TAB10 PO; VITA500045 PO; VITAD1000T PO; [UNRECOGNIZED DRUG - REMARK] TOP
== END ==
LOC: M LAB REF 16:07
PROVIDERS: ATTEND Nurse Practitioner Family
DX: N39.0 Urinary tract infection, site not specified (principal)

== ENCOUNTER 2022-12-11 07:37 | Day surgery (SDC) | payer OTHER ==
[~2022-12-11] VITALS: Ht 165.1 cm; Wt 50.3 kg
[~2022-12-11 07:37] MED LIST changes: -OXYB5TAB10 PO; +ceFAZolin SOD 2 GM in IV 1 EA IV ONE
[2022-12-11] MEDS ORDERED: ROCURONIUM BROMIDE 50MG/5ML VIAL As Ordered ONE (08:24)
[2022-12-11] MEDS ORDERED: KETOROLAC 60MG 2ML VIAL As Ordered ONE (08:24)
[2022-12-11] MEDS ORDERED: LIDOCAINE 2% 100MG/5ML SDV (FOR ANES.) As Ordered ONE (08:24)
[2022-12-11] MEDS ORDERED: propofoL 200 MG/20 ML VIAL As Ordered ONE (08:24)
[2022-12-11] MEDS ORDERED: ACETAMINOPHEN 1000MG 100ML IV BAG As Ordered ONE (08:24)
[2022-12-11] MEDS ORDERED: SUGAMMADEX SODIUM 500 MG/5 ML VIAL (BRIDION) As Ordered ONE (08:24)
[2022-12-11] MEDS ORDERED: ONDANSETRON 4MG 2ML VIAL As Ordered ONE (08:24)
[2022-12-11] MEDS ORDERED: fentaNYL 100 MCG/2 ML INJECTION As Ordered ONE (08:25)
[2022-12-11] MEDS ORDERED: LR 1,000 ML IV SCH ×2 (08:30→10:25)
[2022-12-11] MEDS ORDERED: LevoFLOXacin IV 500 MG in IV 1 EA IV ONE (09:00)
[2022-12-11] MEDS ORDERED: ONDANSETRON 4MG 2ML VIAL IV PRN (10:25)
[2022-12-11] MEDS ORDERED: fentaNYL 100 MCG/2 ML INJECTION IV PRN (10:25)
[2022-12-11] MEDS ORDERED: oxyCODONE 5MG TAB PO PRN (10:25)
[2022-12-11] MEDS ORDERED: HYDROMORPHONE HCL 0.5 MG/ 0.5 ML SYRINGE IV PRN (10:25)
[2022-12-11] MEDS ORDERED: OXYB5TAB10 PO (11:05)
[2022-12-11] MEDS ORDERED: oxyBUTYnin 5 MG TAB PO PRN (11:30)
[2022-12-11] MEDS ORDERED: ACETAMINOPHEN TAB 650MG DOSE (2X325MG) PO PRN (11:30)
[2022-12-11 13:40] VITALS: BP 119/23; TEMP 97.5; O2SAT 95
== END 2022-12-11 13:50 | disposition home or self-care (01) ==
LOC: M SDC 07:37
PROVIDERS: ATTEND Urology
DX: C67.9 Malignant neoplasm of bladder, unspecified (principal); E04.1 Nontoxic single thyroid nodule; R63.4 Abnormal weight loss; M79.7 Fibromyalgia; Z86.711 Personal history of pulmonary embolism; D64.9 Anemia, unspecified; J44.9 Chronic obstructive pulmonary disease, unspecified; Z85.3 Personal history of malignant neoplasm of breast; Z92.3 Personal history of irradiation; Z88.0 Allergy status to penicillin; Z79.899 Other long term (current) drug therapy; Z79.01 Long term (current) use of anticoagulants; F32.A Depression, unspecified; K21.9 Gastro-esophageal reflux disease without esophagitis; Z79.82 Long term (current) use of aspirin
CPT/HCPCS: 52240; 88307; J0131; J1100; J1885; J1956; J2405; J3010

== ENCOUNTER → 2022-12-14 | Outpatient (REF) | payer OTHER ==
[~2022-12-14] MED LIST changes: +OXYB5TAB10 PO; -ceFAZolin SOD 2 GM in IV 1 EA IV ONE
[2022-12-14 18:30] LABS: HEMATOCRIT 24.4 % (36.0-47.0); HEMOGLOBIN 7.1 g/dl (12.0-15.5); MEAN CORPUSCULAR HGB CONC 29.1 g/dl (32.0-36.5); MEAN CORPUSCULAR VOLUME 92.8 fl (80.0-96.0); PLATELET COUNT, AUTOMATED 367 10^3/uL (150-450); RED BLOOD COUNT 2.63 10^6/uL (4.00-5.40); WHITE BLOOD COUNT 10.6 10^3/uL (4.0-10.0)
[2022-12-14 18:53] LABS: CALCIUM LEVEL 8.1 MG/DL (8.3-10.6); CREATININE FOR GFR 0.99 MG/DL (0.55-1.30); GLOMERULAR FILTRATION RATE 57.6 (>39); MAGNESIUM LEVEL 1.3 MG/DL (1.8-2.4); POTASSIUM SERUM 4.4 MMOL/L (3.5-5.1)
== END ==
LOC: M LAB REF 17:54
PROVIDERS: ATTEND Internal Medicine
DX: D64.9 Anemia, unspecified (principal); E83.51 Hypocalcemia; E83.42 Hypomagnesemia

== ENCOUNTER → 2023-01-04 | Outpatient (CLI) | payer OTHER ==
[~2023-01-04] MED LIST changes: +CHOL4POW26 PO; +CVS1CRE56 EXT; +ERGO500029 PO; +FEXO60TA98 PO; +GABA-1171 PO; +OXYB10TA23 PO; +OXYC1TAB23 PO; +VENTAER INH
== END ==
LOC: M ONCR 10:53
PROVIDERS: ATTEND General Practice
DX: C67.3 Malignant neoplasm of anterior wall of bladder (principal); R64 Cachexia; J44.9 Chronic obstructive pulmonary disease, unspecified; F32.A Depression, unspecified; K21.9 Gastro-esophageal reflux disease without esophagitis; R29.6 Repeated falls; Z71.2 Person consulting for explanation of examination or test findings; Z79.82 Long term (current) use of aspirin; Z79.899 Other long term (current) drug therapy; Z86.711 Personal history of pulmonary embolism; Z88.0 Allergy status to penicillin; Z91.048 Other nonmedicinal substance allergy status; Z90.6 Acquired absence of other parts of urinary tract

== ENCOUNTER 2023-01-08 19:40 | Observation (INO) | payer MEDICARE, OTHER ==
[~2023-01-08] VITALS: Ht 163.8 cm; Wt 50.8 kg
[2023-01-08 19:40] VITALS: BP 123/49; TEMP 98.2; O2SAT 95
[~2023-01-08 19:40] MED LIST changes: -CVS1CRE56 EXT; -ERGO500029 PO; -FEXO60TA98 PO; -GABA-1171 PO; -OXYB10TA23 PO; -OXYC1TAB23 PO
[2023-01-08] MEDS ORDERED: FLEET ENEMA PR PRN (20:45)
[2023-01-08] MEDS ORDERED: ATROPINE SULFATE 1% OPHTH SOLN 2ML BTL SL PRN (20:45)
[2023-01-08] MEDS ORDERED: ACETAMINOPHEN TAB 650MG DOSE (2X325MG) PO PRN (20:45)
[2023-01-08] MEDS ORDERED: SCOPOLAMINE 1MG TRANSDERMAL PATCH TOP PRN (20:45)
[2023-01-08] MEDS ORDERED: MORPHINE 10MG/0.5ML ORAL CONCENTRATE SOLUTION U/D SL PRN (20:45)
[2023-01-09] MEDS: ONDANSETRON 4MG ORAL DISINTEGRATING TAB PO PRN ×2 (00:13→15:18)
[2023-01-09] MEDS ORDERED: ERGO500029 PO (01:00)
[2023-01-09] MEDS ORDERED: CALC1CAP31 PO (01:00)
[2023-01-09] MEDS ORDERED: CVS1CRE56 EXT (01:00)
[2023-01-09] MEDS ORDERED: GABA-1171 PO (01:00)
[2023-01-09] MEDS ORDERED: OXYB10TA23 PO (01:00)
[2023-01-09] MEDS ORDERED: ELIQ5TAB PO (01:00)
[2023-01-09] MEDS ORDERED: ATIV1TAB10 PO (01:00)
[2023-01-09] MEDS ORDERED: LEXA1TAB2 PO (01:00)
[2023-01-09] MEDS ORDERED: FOLI1TAB11 PO (01:00)
[2023-01-09] MEDS ORDERED: OXYC1TAB23 PO (01:00)
[2023-01-09] MEDS ORDERED: FEXO60TA98 PO (01:00)
[2023-01-09] MEDS ORDERED: HOME MED LIST COMPLETE! XX SCH (01:05)
[2023-01-09] MEDS: oxyBUTYnin 5 MG TAB PO PRN ×2 (06:31→21:13)
[2023-01-09] MEDS: ESCITALOPRAM OXALATE 10 MG TAB (LEXAPRO) PO SCH (10:16)
[2023-01-09] MEDS: GABAPENTIN 100 MG CAP PO SCH ×2 (10:16→21:13)
[2023-01-09] MEDS: NICOTINE 14 MG/24 HR TRANSDERMAL TD SCH (10:17)
[2023-01-09] MEDS: LORazepam 1 MG TAB PO PRN (18:04)
[2023-01-09] MEDS: PERCOCET 5MG/325MG TAB PO PRN (18:06)
[2023-01-09] MEDS: DOCUSATE SODIUM 100MG CAPSULE PO SCH (21:13)
[2023-01-10] MEDS: ESCITALOPRAM OXALATE 10 MG TAB (LEXAPRO) PO SCH (09:54)
[2023-01-10] MEDS: GABAPENTIN 100 MG CAP PO SCH ×2 (09:54→20:03)
[2023-01-10] MEDS: PERCOCET 5MG/325MG TAB PO PRN ×2 (09:55→14:30)
[2023-01-10] MEDS: NICOTINE 14 MG/24 HR TRANSDERMAL TD SCH (09:55)
[2023-01-10] MEDS: LORazepam 1 MG TAB PO PRN ×2 (09:55→14:30)
[2023-01-10] MEDS: oxyBUTYnin 5 MG TAB PO PRN (09:55)
[2023-01-10] MEDS: DOCUSATE SODIUM 100MG CAPSULE PO SCH (20:03)
[2023-01-11] MEDS ORDERED: LACTULOSE 20GM/30ML SYRUP UDC PO ONE (07:35)
[2023-01-11] MEDS ORDERED: BISACODYL 10MG SUPP PR PRN (07:40)
[2023-01-11] MEDS: GABAPENTIN 100 MG CAP PO SCH (08:28)
[2023-01-11] MEDS: NICOTINE 14 MG/24 HR TRANSDERMAL TD SCH (08:28)
[2023-01-11] MEDS: ESCITALOPRAM OXALATE 10 MG TAB (LEXAPRO) PO SCH (08:29)
[2023-01-11] MEDS ORDERED: DULC10SU2 PR (09:21)
[2023-01-11] MEDS ORDERED: SENN1TAB96 PO (09:21)
[2023-01-11] MEDS ORDERED: ATIV1TAB10 PO (09:21)
[2023-01-11] MEDS ORDERED: MORP1SOL5 PO (09:21)
[2023-01-11] MEDS ORDERED: HYOS125TA PO (09:21)
== END 2023-01-11 11:30 | disposition hospice, inpatient (51) ==
LOC: M MS5PR 19:40 → INTOOBSV 19:40
PROVIDERS: ADMIT Family Medicine; ATTEND Internal Medicine
DX: C67.9 Malignant neoplasm of bladder, unspecified (principal); E63.8 Other specified nutritional deficiencies; K31.89 Other diseases of stomach and duodenum; I26.99 Other pulmonary embolism without acute cor pulmonale; J44.9 Chronic obstructive pulmonary disease, unspecified; K21.9 Gastro-esophageal reflux disease without esophagitis; M79.7 Fibromyalgia; Z79.899 Other long term (current) drug therapy; Z88.0 Allergy status to penicillin
CPT/HCPCS: 87635; G0378